=== PATIENT | male | born 1980 | race Caucasian/White ===

== ENCOUNTER 2020-06-07 17:54 | Emergency (ER) | payer OTHER ==
[2020-06-07] MEDS ORDERED: GI Cocktail Oral Solution 30 ML PO ONE (18:34)
--- NOTE | 2020-06-07 18:40 | EDM.PDOC ---
ED HPI GENERAL MEDICAL PROBLEM - General Chief Complaint: Abdominal Pain Stated Complaint: STOMACH PAIN Time Seen by Provider: 06/07/20 18:25 Source of Information: Reports: Patient History Limitations: Reports: No Limitations - History of Present Illness INITIAL COMMENTS - FREE TEXT/NARRATIVE: Patient presents with a sharp mid epigastric pain that started about 530 this morning he rates about a 8 out of 10 that comes on intermittently but he does not know how long it lasts for then goes away or down to a 2 out of 3. Patient says he was able to eat today he ate a sub for breakfast and then had a gas station hamburger about 4:00 today after getting home he decided he needed to come to the ER and get checked out. He states he chews about 1 to 2 packs of tobacco a day has a history of acid reflux which he takes Pepcid for daily and has for the last 6 months. He has no other health problems he has no family history of AAA's no cardiac family history He denies any nausea or vomiting fever chills cough no pain radiation he has no other complaints Duration: Hour(s): Severity: Severe Improves with: Reports: Other (time) Worsens with: Reports: None (no change with food ) Associated Symptoms: Reports: No Other Symptoms Abdominal Pain Score (Numeric/FACES): 8 - Related Data Allergies Allergy/AdvReac Type Severity Reaction Status Date / Time cefaclor [From Ceclor] Allergy Cannot Verified 06/07/20 18:37 Remember Penicillins Allergy Cannot Verified 06/07/20 18:37 Remember ED ROS GENERAL - Review of Systems Review Of Systems: See Below Constitutional: Denies: Fever, Chills, Malaise, Weakness, Fatigue HEENT: Reports: No Symptoms Respiratory: Reports: No Symptoms Cardiovascular: Reports: No Symptoms Endocrine: Reports: No Symptoms GI/Abdominal: Reports: Abdominal Pain. Denies: Anorexia, Black Stool, Bloody Stool, Constipation, Diarrhea, Decreased Appetite, Difficulty Swallowing, Distension, Flatus, Hematemesis, Hematochezia, Melena, Nausea : Reports: No Symptoms Musculoskeletal: Reports: No Symptoms Skin: Reports: No Symptoms Neurological: Reports: No Symptoms Psychiatric: Reports: No Symptoms Hematologic/Lymphatic: Reports: No Symptoms ED EXAM, GI/ABD - Physical Exam Exam: See Below Exam Limited By: No Limitations General Appearance: Alert, WD/WN, No Apparent Distress, Other (Patient is lying in the bed no acute distress noted mild hypertension) Eyes: Bilateral: Normal Appearance Throat/Mouth: Normal Voice, No Airway Compromise Neck: Normal Inspection, Supple, Non-Tender, Full Range of Motion Respiratory/Chest: No Respiratory Distress, Lungs Clear, Normal Breath Sounds, No Accessory Muscle Use, Chest Non-Tender Cardiovascular: Normal Peripheral Pulses, Regular Rate, Rhythm, No Edema, No Gallop, No JVD, No Murmur, No Rub GI/Abdominal Exam: Normal Bowel Sounds, Soft, Non-Tender, No Organomegaly (No tenderness palpation could be elicited negative rebound negative Mclean's negative heel slap negative psoas negative pelvic rock), No Distention, No Abnormal Bruit, No Mass, Other. No: Guarding, Rigid, Rebound, Tender, Abnormal Bowel Sounds Extremities: Normal Inspection, Normal Range of Motion, Non-Tender, No Pedal Edema Neurological: Alert, Oriented, CN II-XII Intact, Normal Cognition, Normal Gait, No Motor/Sensory Deficits Psychiatric: Normal Affect, Normal Mood Skin Exam: Warm, Dry, Intact, Normal Color, No Rash Course - Vital Signs Text/Narrative:: Recheck patient states he feels a lot better pain is about 1 he is okay with diagnosis treatment follow-up with a PCP Blood pressure rechecked 135/79 Prescription given for GI cocktail equal parts lidocaine Maalox and 1 teaspoon every 6 hours as needed dispensed 4 ounces Last Recorded V/S: Last Vital Signs Temp 35.2 C L 06/07/20 18:19 Pulse 87 06/07/20 18:19 Resp 16 06/07/20 18:19 BP 162/87 H 06/07/20 18:19 Pulse Ox 97 06/07/20 18:19 - Orders/Labs/Meds Meds: Medications Discontinued Medications Generic Name Dose Route Start Last Admin Trade Name Freq PRN Reason Stop Dose Admin Al Hydroxide/Mg Hydroxide 30 ml 06/07/20 18:34 06/07/20 18:44 Gi Cocktail PO 06/07/20 18:35 30 ml ONETIME ONE Administration Departure - Departure Time of Disposition: 19:25 Disposition: Home, Self-Care 01 Condition: Good Clinical Impression: Epigastric pain - Discharge Information *PRESCRIPTION DRUG MONITORING PROGRAM REVIEWED*: Not Applicable *COPY OF PRESCRIPTION DRUG MONITORING REPORT IN PATIENT PATRICK: Not Applicable Instructions: Abdominal Pain, Adult, [id number] Referrals: PCP,None [Primary Care Provider] - Forms: ED Department Discharge Additional Instructions: Stop chewing tobacco Follow-up with a primary care provider in the next 24 to 48 hours Return to the emergency room if anything changes or gets worse Take the medication on the prescription as directed use the GI cocktail 1 teaspoon every 6 hours as needed until you see your primary care provider Sepsis Event Note (ED) - Evaluation Sepsis Screening Result: No Definite Risk - Focused Exam Vital Signs: Vital Signs Temp Pulse Resp BP Pulse Ox 06/07/20 18:19 35.2 C L 87 16 162/87 H 97 - Problem List & Annotations (1) Epigastric pain SNOMED Code(s): 26025998 Code(s): R10.13 - EPIGASTRIC PAIN Status: Acute Current Visit: Yes
== END 2020-06-07 19:41 | disposition home or self-care (01) ==
LOC: VM.ED 17:54
DX: R10.13 Epigastric pain (principal); K21.9 Gastro-esophageal reflux disease without esophagitis; F17.220 Nicotine dependence, chewing tobacco, uncomplicated; Z88.1 Allergy status to other antibiotic agents; Z88.0 Allergy status to penicillin; Z79.899 Other long term (current) drug therapy
CPT/HCPCS: 99283; A9270-GY